=== PATIENT | male | born 1940 | race Caucasian/White ===

== ENCOUNTER → 2019-11-16 09:05 | Outpatient (CLI) | payer OTHER, SELFPAY ==
--- NOTE | 2019-11-16 | DI.ECHO.S_ITS ---
[facility] +---------+ : : [address] : [place] [address] : : : : [id number] : : : : Phone: [phone]+ Echocardiogram Report + + :Name: BUCK MUJICA Study Date: 11/16/2019 Height: 69 in : :[facility] Weight: 195 lb: : Gender: Male BSA: 2.0 m2 : :: 1940 Age: 79 yrs : :Reason For Study: HEART CONDITION : :Ordering Physician: JOSIAH, : :CHAVO Performed By: Alma Faulkner : :Referring: CHAVO RAHMAN : + + Interpretation Summary The left ventricle is normal in size and wall thickness. Left ventricular systolic function is normal without focal wall motion abnormalities. The ejection fraction is estimated to be 55-60%. Diastolic parameters suggest a relaxation abnormality of the left ventricle, consistent with probable normal filling pressures. The right ventricle is normal in size and function. Both atria are normal in size. There is no significant valvular heart disease. The aortic root is normal size. Procedure: A two-dimensional transthoracic echocardiogram with color flow and Doppler was performed. The study quality was technically adequate. There is no prior echocardiogram noted for this patient. The heart rate ranged between 64-70 bpm during the study. The patient had frequent PACs during the exam. The patient had occasional PVCs during the exam. Left Ventricle: The left ventricle is normal in size and wall thickness. Left ventricular systolic function is normal without focal wall motion abnormalities. The ejection fraction is estimated to be 55-60%. Diastolic parameters suggest a relaxation abnormality of the left ventricle, consistent with probable normal filling pressures. Right Ventricle: The right ventricle is normal in size and function. Atria: Both atria are normal in size. There is no Doppler evidence for an interatrial shunt. Mitral Valve: The mitral valve leaflets appear mildly thickened, but open well. There is trace mitral regurgitation. Aortic Valve: The aortic valve is trileaflet. The aortic valve opens well. There is no aortic valve stenosis. No aortic regurgitation is present. Tricuspid Valve: The tricuspid valve is not well visualized, but is grossly normal. There is trace tricuspid regurgitation. Pulmonic Valve: The pulmonic valve is not well visualized. There is no pulmonic valvular regurgitation. There is no significant valvular heart disease. Great Vessels: The aortic root is normal size. The ascending aorta is normal in size. The IVC is of normal diameter and collapses greater than 50% with a sniff. This suggests a low right atrial pressure of 3 mm Hg. Pericardium/ Pleura There is no pericardial effusion. There is an anterior echo-free space consistent with a fat pad. There is no pleural effusion. MMode/2D Measurements & Calculations LVIDd: 4.8 cm LVOT diam: 2.1 cm LVIDs: 3.3 cm Ao root diam: 3.2 cm FS: 30.5 % asc Aorta Diam: 3.3 cm EPSS: 1.3 cm Ao Arch Diam (Prox Trans): 3.0 cm IVSd: 0.76 cm LVPWd: 0.85 cm LV lindsay. diameter/BSA (cm/m^2): 2.3 LV sys. diameter/BSA (cm/m^2): 1.6 LA A2 area: 15.1 cm2 RA long axis: 4.5 cm LA A4 area: 13.0 cm2 RA area: 12.1 cm2 LA length (vol): 5.1 cm RA vol: 27.8 ml LA vol: 32.9 ml RA : 13.6 ml/m2 LA vol index: 16.1 ml/m2 IVC diam: 1.5 cm RVD1 (basal): 3.3 cm TAPSE: 2.2 cm Doppler Measurements & Calculations Ao V2 max: 107.2 cm/sec LVOT Max Eulogio: 87.6 cm/sec Ao V2 mean: 63.0 cm/sec LV V1 max P.1 mmHg Ao max P.6 mmHg LV V1 VTI: 20.3 cm Ao mean P.9 mmHg RACHELLE(I,D): 3.6 cm2 Ao V2 VTI: 19.4 cm RACHELLE(V,D): 2.8 cm2 sev ratio: 1.0 RACHELLE indexed to BSA (cm^2/m^2): 1.8 MV E max eulogio: 89.7 cm/sec PA V2 max: 84.9 cm/sec MV A max eulogio: 100.5 cm/sec PA V2 mean: 51.1 cm/sec MV E/A: 0.89 PA mean P.3 mmHg Med Peak E' Eulogio: 5.7 cm/sec PA pr(Accel): 37.9 mmHg E/E' med: 15.7 Lat Peak E' Eulogio: 9.0 cm/sec E/E' lat: 9.9 E/e' average: 12.8 MV dec time: 0.27 sec SV(LVOT): 70.0 ml Reading Physician:05:04 PM
== END ==
PROVIDERS: PCP Internal Medicine; Referring Provider Physician Assistant; Visit Provider Physician Assistant
DX: I51.9 Heart disease, unspecified (principal)
CPT/HCPCS: 93306

== ENCOUNTER 2024-10-28 10:15 | Outpatient (RCR) | payer OTHER, SELFPAY | END 2024-10-28 12:15 | LOC: PUL 10:15 | PROVIDERS: PCP Internal Medicine; Referring Provider Internal Medicine; Visit Provider Internal Medicine | DX: J44.9 Chronic obstructive pulmonary disease, unspecified (principal) | CPT/HCPCS: 94626 ==